=== PATIENT | male | born 1975 | race Caucasian/White ===

== ENCOUNTER 2019-06-03 06:18 | Day surgery (SDC) | payer OTHER ==
[2019-04-14 14:12] LABS: Absolute Lymphocytes (CBC) 2.5 K/uL (0.7-4.9); Basophils % 0.5 % (0-1.3); Hematocrit 45.6 % (39.6-49.0); Lymphocytes % 34.5 % (15.3-44.8); MPV 7.9 fL (7.6-11.3); RBC Red Blood Cell Count 5.07 M/uL (4.33-5.43)
[2019-04-14 14:29] LABS: Potassium 4.1 mmol/L (3.5-5.1)
[2019-04-14 14:32] LABS: Protime INR 1.14
[2019-04-14 14:41] LABS: Urine Appearance CLEAR; Urine Bilirubin NEGATIVE (NEG); Urine Color YELLOW; Urine Glucose NEGATIVE (NEG)
[2019-04-14 14:43] LABS: Urine Blood NEGATIVE (NEG); Urine Microscopic Reflex NO UMIC; Urine Protein NEGATIVE (NEG)
--- NOTE | 2019-04-15 07:55 | EKG ---
Test Date: 2019-04-14 Test Time: 13:48:07 Avionics Electrical Engineer: TG MEASUREMENT RESULTS: Intervals: Rate: 57 IN: 176 QRSD: 102 QT: 420 QTc: 408 [place]: P: 46 IN: 176 QRS: 69 T: 59 INTERPRETIVE STATEMENTS: Sinus bradycardia Otherwise normal ECG Compared to ECG 04/17/1992 18:19:00 T-wave abnormality no longer present Electronically Signed On 04-15-19 07:55:28 [employer] by Ford Crain
[2019-06-02 13:52] LABS: Urine Appearance CLEAR; Urine Bilirubin NEGATIVE (NEG); Urine Blood NEGATIVE (NEG); Urine Color YELLOW; Urine Glucose NEGATIVE (NEG); Urine Protein NEGATIVE (NEG); Urine Specific Gravity 1.025 (1.005-1.030)
[2019-06-02 13:57] LABS: Absolute Lymphocytes (CBC) 2.4 K/uL (0.7-4.9); Basophils % 0.6 % (0-1.3); Hematocrit 45.2 % (39.6-49.0); Lymphocytes % 29.6 % (15.3-44.8); MPV 7.9 fL (7.6-11.3); RBC Red Blood Cell Count 5.12 M/uL (4.33-5.43)
[2019-06-02 14:03] LABS: Protime INR 0.96; Urine Microscopic Reflex NO UMIC
--- OUTSIDE RECORDS SUMMARY | 2019-06-03 06:20 | XMS REPORT ---
:1975 Author Organization [employer] Care Team Providers Name Role Phone Milana Echo Provider Role Unavailable Allergies No Known Allergies Problems Problem Type Condition Code Onset Dates Condition Status Problem Hydrocele, unspecified hydrocele type N43.3 Active Medications No Known Medications Results No Known Results Summary Purpose eClinicalWorks Submission
--- OUTSIDE RECORDS SUMMARY | 2019-06-03 06:20 | XMS REPORT ---
:1975 Author Organization [employer] Care Team Providers Name Role Phone KaneMeg rose Provider Role Unavailable Allergies, Adverse Reactions, Alerts Substance Reaction Event Type N.K.D.A. Info Not Available Non Drug Allergy Problems Problem Type Condition Code Onset Dates Condition Status Assessment Hydrocele, unspecified hydrocele type N43.3 Active Problem Hydrocele, unspecified hydrocele type N43.3 Active Medications Medication Code Code Instructions Start End Date Status Dosage System Date Tramadol HCl [facility] 17280913824 50 MG Orally Active 1 tablet Once a day as needed Results No Known Results Summary Purpose eClinicalWorks Submission
--- OUTSIDE RECORDS SUMMARY | 2019-06-03 06:20 | XMS REPORT ---
:1975 [facility] Address [address] [place] [address] Care Team Providers Name Role Phone Unavailable Unavailable Unavailable Payers Payer Name Policy Type Policy Number Effective Date Expiration Date Problems This patient has no known problems. Allergies, Adverse Reactions, Alerts Allergy Allergy Status Severity Reaction(s) Onset Inactive Treating Comments Name Type Date Date Clinician No Known DA Active U 2019-01 Allergies 00:00:0 0 Medications This patient has no known medications. Results Test Description Test Time Test Comments Text Results Atomic Results Result Comments CBC W/MANUAL DIFF 2019-02-17 12:28:00 Test Item Value Reference Range Comments WHITE BLOOD CELL (test code=WBC) 7.3 K/mm3 4.1-12.1 RED BLOOD CELL (test code=RBC) 5.60 M/mm3 3.8-5.5 HEMOGLOBIN (test code=HGB) 17.6 G/DL 10.6-15.8 HEMATOCRIT (test code=HCT) 49.7 % 31.8-47.4 MEAN CELL VOLUME (test code=MCV) 88.8 fL 80.1-101.1 MEAN CELL HGB (test code=MCH) 31.4 pg 25.3-35.3 MEAN CELL HGB CONCETRATION (test code=MCHC) 35.4 G/DL 32.7-35.1 RED CELL DISTRIBUTION WIDTH (test code=RDW) 13.1 % 12.2-16.4 RED CELL DISTRIBUTION WIDTH (test code=RDW-SD) 42.8 fL 35.1-43.9 PLATELET COUNT (test code=PLT) 292 K/mm3 155-337 MEAN PLATELET VOLUME (test code=MPV) 9.2 fL 7.6-10.4 GRANULOCYTE % (test code=GR%) 57.3 % 37.8-82.6 IMMATURE GRANULOCYTE % (test code=IG%) 0.3 % 0.0-2.0 LYMPHOCYTE % (test code=LY%) 28.8 % 14.1-45.4 MONOCYTE % (test code=MO%) 10.8 % 2.5-11.7 EOSINOPHIL % (test code=EO%) 2.0 % 0.0-6.2 BASOPHIL % (test code=BA%) 0.8 % 0.0-2.6 NUCLEATED RBC % (test code=NRBC%) 0.0 /100WBC% 0.0-1.0 GRANULOCYTE # (test code=GR#) 4.20 k/mm3 2.0-13.7 IMMATURE GRANULOCYTE # (test code=IG#) 0.02 K/mm3 0.00-0.03 LYMPHOCYTE # (test code=LY#) 2.11 K/mm3 0.6-3.8 MONOCYTE # (test code=MO#) 0.79 K/mm3 0.11-0.59 EOSINOPHIL # (test code=EO#) 0.15 K/mm3 0.0-0.4 BASOPHIL # (test code=BA#) 0.06 K/mm3 0.0-0.1 NUCLEATED RBC # (test code=NRBC#) 0.00 K/mm3 0.00-0.05 URINALYSIS [id number] 12:27:00 Test Item Value Reference Range Comments UA COLOR (test code=COLU) YELLOW DESCRIPT YELLOW UA APPEARANCE (test code=APPU) CLEAR DESCRIPT CLEAR UA GLUCOSE DIPSTICK (test code=DGLUU) NEGATIVE (0) mg/dL (NEG) 0 UA BILIRUBIN DIPSTICK (test code=BILU) NEGATIVE (0) mg/dL (NEG) 0 UA KETONE DIPSTICK (test code=KETU) 0 (NEG) mg/dL (NEG) 0 UA SPECIFIC GRAVITY (test code=SGU) 1.025 SG 1.001-1.035 UA BLOOD DIPSTICK (test code=EBONIE) NEGATIVE (0) mg/DL (NEG) 0 UA PH DIPSTICK (test code=GRISEL) 7.0 pH UNITS 4.6-8.0 UA PROTEIN DIPSTICK (test code=PROU) NEGATIVE (0) mg/dL <30 (1+) UA UROBILINIOGEN DIPSTICK (test 4 mg/dL <2.0 (1+) code=URO) UA NITRITE DIPSTICK (test code=LEÓN) NEGATIVE (0) SCREEN NEG UA LEUKOCYTE ESTERASE DIPSTICK (test NEGATIVE (0) Leuk/mcL (NEG) 0 code=LEUU) UA WBC (test code=WBCU) 0-3 #WBC/HPF 0-3 UA RBC (test code=RBCU) 0-3 #RBC/HPF 0-3 UA MUCUS (test code=MUCU) RARE /LPF NONE - US SCROTUM AND [id number] 12:23:00 Patient Name: LES OLIVIER Unit No: [id number] EXAMS: CPT CODE: [id number] US SCROTUM AND [facility] [address] Scrotal ultrasound History: Pain COMPARISON: None R 16 Grayscale, color, and Doppler images of the scrotum are obtained. FINDINGS: The right testicle measures 5.6 x 3.3 x 3.3 cm, and the left testiclemeasures 6.0 x 2.8 x 2.8 cm. The testicles demonstrate normal color chest upper flow. Large right hydrocele. The right epididymis is not identified likely secondary to the large hydrocele. The left epididymis measures 0.9 x 1.4 x 2.1 cm with a subcentimeter cyst which appears simple. IMPRESSION: Large right hydrocele. No evidence of testicular torsion. at 1223 Reported and signed by: Paulie Wu M.D. CC : Ann Mccullough NP Technologist: Christina Talley [facility] Trnscrbd D/ (1223) [id number] Probe: Orig Print D/T: S: 02/17/2019 (1226) Probe: HAYES Johnson NAME: LES OLIVIER [address] [place] [address] PHYS: Ann Miller NP [place] [address] : 1975 AGE: 43 SEX: M LOC: [facility] PHONE #: [phone] EXAM DATE: 02/17/2019 STATUS: PRE ER FAX #: [phone] RAD NO: Page 1 Signed ReportCHEMISTRY 7 [id number] 12:19:00 Test Item Value Reference Range Comments IONIZED CALCIUM (test code=CAIABG) mmol/L 1.13-1.32 ISTAT-TCO2 VENOUS (test code=TCO2VP) MMOL/L 21-32 ISTAT-SODIUM (test code=NAP) MMOL/L 135-148 ISTAT-POTASSIUM (test code=KP) MMOL/L 3.5-5.9 ISTAT-CHLORIDE (test code=CLP) MMOL/L 98-106 ISTAT-ANION GAP (test code=GAPP) MEQ/L 10-20 ISTAT-GLUCOSE (test code=GLUP) MG/DL 70-119 ISTAT-BUN (test code=BUNP) MG/DL 8-28 BEDSIDE CREATININE (test code=CREATBED) MG/DL 0.6-1.2 GLOMERULAR FILTRATION RATE POC (test code=GFRBED) 82 63-147 CHEMISTRY 7 [id number] 12:19:00 Test Item Value Reference Range Comments IONIZED CALCIUM (test 1.19 mmol/L 1.13-1.32 code=CAIABG) ISTAT-TCO2 VENOUS (test 28 MMOL/L 21-32 code=TCO2VP) ISTAT-SAMPLE SOURCE (test UNKNOWN SPEC TYPE Descript Specimen code=SRCIST) ISTAT-SODIUM (test code=NAP) 141 MMOL/L 135-148 ISTAT-POTASSIUM (test code=KP) 3.9 MMOL/L 3.5-5.9 ISTAT-CHLORIDE (test code=CLP) 102 MMOL/L 98-106 ISTAT-ANION GAP (test code=GAPP) 15.0 MEQ/L 10-20 ISTAT-GLUCOSE (test code=GLUP) 94 MG/DL 70-119 ISTAT-BUN (test code=BUNP) 17 MG/DL 8-28 BEDSIDE CREATININE (test 1.0 MG/DL 0.6-1.2 code=CREATBED) GLOMERULAR FILTRATION RATE POC 82 63-147 (test code=GFRBED)
--- OUTSIDE RECORDS SUMMARY | 2019-06-03 06:20 | XMS REPORT ---
:1975 Author Organization eClinicalWorks Care Team Providers Name Role Phone Meg Hernandez Provider Role Unavailable Allergies No Known Allergies Problems Problem Type Condition Code Onset Dates Condition Status Problem Hydrocele, unspecified hydrocele type N43.3 Active Medications No Known Medications Results No Known Results Summary Purpose eClinicalWorks Submission
--- OUTSIDE RECORDS SUMMARY | 2019-06-03 06:20 | XMS REPORT ---
:1975 Author Organization eClinicalWorks Care Team Providers Name Role Phone Arturo Ruiz Provider Role Unavailable Allergies No Known Allergies Problems Problem Type Condition Code Onset Dates Condition Status Assessment Hydrocele in adult N43.3 Active Problem Hydrocele, unspecified hydrocele type N43.3 Active Medications Medication Code Code Instructions Start End Date Status Dosage System Date Tramadol HCl [facility] 09773118057 50 MG Orally Active 1 tablet Once a day as needed Results No Known Results Summary Purpose eClinicalWorks Submission
[2019-06-03] MEDS ORDERED: CEFAZOLIN/SWI 1gm 1 GM/10 ML SYR ONE (06:23)
[2019-06-03] MEDS ORDERED: Ringers Lactate 1,000 ML IV ONE (06:23)
[2019-06-03] MEDS ORDERED: LIDOCAINE 2% MPF 5 ML VIAL ONE (07:18)
[2019-06-03] MEDS ORDERED: FENTANYL CITR 100 MCG/2 ML ONE (07:18)
[2019-06-03] MEDS ORDERED: propofoL 200 MG/20 ML VIAL IV ONE (07:18)
[2019-06-03] MEDS ORDERED: MIDAZOLAM HCL 2 MG/2 ML INJ ONE (07:18)
[2019-06-03] MEDS: BUPIVACAINE 0.25% PF 30 ML VIAL ONE ×3 (08:06→09:10)
[2019-06-03] MEDS ORDERED: KETOROLAC 30 MG/ML INJ ONE (08:51)
[2019-06-03 09:34] VITALS: O2SAT 100
[2019-06-03] MEDS ORDERED: ONDANSETRON 4 MG/2 ML VIAL ONE (09:52)
[2019-06-03] MEDS: HYDROMORPHONE HCL 1 MG/ML INJ ONE ×2 (09:52→10:05)
[2019-06-03 10:19] VITALS: BP 129/80; TEMP 97.2
[2019-06-03] MEDS ORDERED: CODEINE 30MG/APAP 300MG TAB ONE (10:43)
== END 2019-06-03 11:36 | disposition home or self-care (01) ==
LOC: OR 06:18
PROVIDERS: ATTEND Internal Medicine Hematology & Oncology
PROC: 0VB60ZZ Excision of Right Tunica Vaginalis, Open Approach (ICD-10-PCS; principal; 2019-06-03 07:30)
DX: N43.3 Hydrocele, unspecified (principal)
CPT/HCPCS: 93005; 87088; 85025 ×2; 80048; 36415 ×2; 85610 ×2; 88304; 85730 ×2; 81003 ×2; 55040; J2704; J2250; J3010; J1170; J0690; J7120; J2405; 87086; 88302